=== PATIENT | male | born 1975 | race Caucasian/White ===

== ENCOUNTER → 2021-11-28 | Outpatient (CLI) | payer BC ==
--- NOTE | 2021-11-28 09:37 | Diagnostic Imaging Report ---
CLINICAL INDICATION: Patient with chronic low back pain. No known injury. EXAM: MRI of the lumbar spine performed without IV contrast. Sequences include sagittal T2, sagittal T1, sagittal T2 fat-sat, and axial T2. COMPARISON: None. FINDINGS: There is no acute lumbar spine fracture or dislocation. There are multiple chronic Schmorl's nodes involving the T11, T12, L1, L3, L4, and L5 endplates with associated Modic type II degenerative signal changes. There are Modic type I degenerative signal changes involving the L5-S1 endplate. There is a small intraosseous hemangioma within the right upper aspect of the L4 vertebra. Otherwise, there is questionable increased T2 signal within the conus medullaris of the distal thoracic spinal cord. There are no cord expansile changes. Otherwise, the visualized portions of the distal thoracic spinal cord, conus medullaris, and cauda equina nerve roots are unremarkable. The conus medullaris tip is seen at the upper L1 vertebral body level. There are degenerative spurs involving the lumbar spine. There is lower lumbar spine facet arthropathy. L1-L2: Unremarkable. L2-L3: There is minimal disk bulging. There is a small annular tear involving the left extraforaminal aspect of the disk. There is mild to moderate bilateral facet arthropathy. There is mild central canal stenosis. There is no significant neuroforaminal narrowing. L3-L4: There is minimal diffuse disk bulging. There is moderate bilateral facet arthropathy. There is mild central canal narrowing. There is mild bilateral neuroforaminal narrowing. L4-L5: There is a diffuse disk bulge with disk spurs extending into the foraminal regions bilaterally with the left side more than the right. There is moderate bilateral facet arthropathy. There is mild central canal narrowing. There is mild to moderate right neuroforaminal narrowing and moderate to severe left neuroforaminal narrowing. L5-S1: There is chronic bilateral L5 spondylolysis. There is no significant listhesis. There is diffuse disk bulge with moderate loss of disk space height. There is severe right facet arthropathy and moderate left facet arthropathy. There is moderate to severe bilateral neuroforaminal narrowing with the right side worse than left. IMPRESSION: 1: There appears to be a small amount of intramedullary increased T2 signal involving the conus medullaris with no expansile changes. MRI of the thoracic spine with and without contrast is suggested for further evaluation. 2: There is multilevel lumbar spine degenerative disk disease, worse at the L4-L5 and L5-S1 levels. There are multilevel disk bulges and facet arthropathy with moderate to severe L4-L5 and L5-S1 neuroforaminal narrowing, as described above. 3: There is chronic bilateral L5 spondylolysis with no significant listhesis. Dictated by: Dictated on workstation # [id number]
== END ==
LOC: RAD 08:00
PROVIDERS: ATTEND Family Medicine
DX: M51.37 Other intervertebral disc degeneration, lumbosacral region (principal); M47.817 Spondylosis without myelopathy or radiculopathy, lumbosacral region; M51.27 Other intervertebral disc displacement, lumbosacral region; M48.07 Spinal stenosis, lumbosacral region
CPT/HCPCS: 72148